=== PATIENT | male | born 1990 | race Two or more races ===

== ENCOUNTER 2016-06-02 12:16 | Emergency (ER) | payer OTHER ==
--- NOTE | 2016-06-02 13:15 | EDPHY ---
H & P Time Seen by Provider: 06/02/16 13:00 HPI/ROS: CHIEF COMPLAINT: Head injury, left wrist pain HISTORY OF PRESENT ILLNESS: 26-year-old male presents after a fall with head injury and left wrist pain. He was standing on a metal beam, approximately 10 feet off the ground, when he slipped and fell directly onto a metal floor. His left arm hit 1st and then his left side and head. No loss of consciousness or amnesia. He denies headache, neck pain, chest pain or abdominal pain. He has slight left upper extremity pain with movement. Tetanus is up-to-date. REVIEW OF SYSTEMS: Constitutional: No weakness Eyes: No visual changes or eye pain ENT: No dental trauma Neck:No pain or injury Respiratory: No shortness of breath Cardiac: No chest pain Gastrointestinal: No abdominal pain, no vomiting Back:No pain or injury Genitourinary: No hematuria Skin: No lacerations Neurological: No headache, no dizziness Past Medical/Surgical History: Denies Social History: No recent alcohol Smoking Status: Current some day smoker Physical Exam: General Appearance: Alert, no distress Head: left-sided forehead contusions, 2 linear lacerations in the left lateral eyebrow, 1 cm, 5 mm Eyes: No conjunctival erythema, PERRLA, EOMI ENT, Mouth: No hemotympanum, no oral trauma, no facial bony tenderness Neck: Nontender, full range of motion without pain Respiratory: No chest wall tenderness, lungs clear bilaterally Cardiovascular: Regular rate and rhythm Abdomen: Abdomen is soft and nontender Back: No midline T/L/S tenderness Extremities: Pelvis is stable and nontender; left wrist-tenderness over the snuffbox, range of motion with mild pain. Neurological: A&Ox3, normal motor function, normal sensory exam, cranial nerves intact Psychiatric: Mood and affect normal Constitutional: Initial Vital Signs Temperature (C) 36.4 C 06/02/16 12:17 Heart Rate 86 06/02/16 12:17 Respiratory Rate 16 06/02/16 12:17 Blood Pressure 152/94 H 06/02/16 12:17 O2 Sat (%) 98 06/02/16 12:17 O2 Delivery Mode Room Air Allergies/Adverse Reactions: No Known Allergies Allergy (Unverified 06/02/16 12:22) Home Medications: Medication Instructions Recorded NK [No Known Home Meds] 06/02/16 Medical Decision Making - Diagnostics Imaging Results: Imaging Impressions Wrist X-Ray 06/02/16 13:13 Impression: Normal left wrist series. X-ray independently reviewed by me reveals no acute fracture. Procedures: Procedure: Laceration repair. The 1 cm laceration on the left eyebrow was anesthetized using lidocaine. The wound was irrigated, draped and explored to its base with a gloved finger. There were no deep structures involved. No foreign body palpable. The wound was repaired with 6 0 Prolene, #2. The wound repair was simple. Procedure: Laceration repair. The 5 mm laceration on the left eyebrow was anesthetized using lidocaine. The wound was irrigated, draped and explored to its base with a gloved finger. There were no deep structures involved. No foreign body palpable. The wound was repaired with 6 0 Prolene, #2. The wound repair was simple. ED Course/Re-evaluation: This patient presents with a minor head injury. He does not have a headache and neurologic exam is normal. Neuro imaging is not indicated. He also has 2 small lacerations in the left eyebrow and left wrist pain. The eyebrow lacerations were sutured by me. X-ray was negative for wrist fracture. A thumb spica splint was placed. Patient was informed that he may have a scaphoid fracture. He is aware that he needs to follow up in 7-10 days for repeat x-ray. Head injury precautions given. Differential Diagnosis: Differential diagnosis includes though it is not limited to fracture, intracranial hemorrhage, pneumothorax, hemothorax, intra-abdominal hemorrhage. Departure - Departure Disposition: Home, Routine, Self-Care Clinical Impression: Head injury Qualifiers: Encounter type: initial encounter Qualified Code(s): S09.90XA - Unspecified injury of head, initial encounter Facial laceration Qualifiers: Encounter type: initial encounter Qualified Code(s): S01.81XA - Laceration without foreign body of other part of head, initial encounter Contusion of wrist, left Qualifiers: Encounter type: initial encounter Qualified Code(s): S60.212A - Contusion of left wrist, initial encounter Condition: Good Instructions: Head Injury (ED), Contusion in Adults (ED), Facial Laceration (ED ) Additional Instructions: Return in 5 days for suture removal. Follow-up in 7-10 days for a repeat x-ray of your wrist. You may have a fracture of the scaphoid. Wear the wrist splint until you are seen in 7-10 days. Referrals: Horacio Qureshi MD [Medical Doctor] - As per Instructions (Follow-up in 7- 10 days for repeat x-ray.)
[2016-06-02 14:23] VITALS: BP 129/71; PULSE 75; RESP 14; TEMP 98.6; O2SAT 96
== END 2016-06-02 14:21 | disposition home or self-care (01) ==
PROC: 0HQ1XZZ Repair Face Skin, External Approach (ICD-10-PCS; principal; 2016-06-02)
DX: S01.81XA Laceration without foreign body of other part of head, initial encounter (principal); S60.212A Contusion of left wrist, initial encounter; F17.200 Nicotine dependence, unspecified, uncomplicated; W17.89XA Other fall from one level to another, initial encounter; Y92.69 Other specified industrial and construction area as the place of occurrence of the external cause; Y99.0 Civilian activity done for income or pay; Y93.89 Activity, other specified